=== PATIENT | female | born 1990 | race Caucasian/White ===

== ENCOUNTER 2017-12-25 04:27 | Emergency (ER) | payer OTHER ==
[2017-12-25] MEDS ORDERED: Loperamide 2 MG Cap PO STA (04:59)
--- NOTE | 2017-12-25 05:05 | EDM.PDOC ---
ED HPI GENERAL MEDICAL PROBLEM - General Chief Complaint: Gastrointestinal Problem Stated Complaint: STOMACH PAIN AND POOPING BLOOD Time Seen by Provider: 12/25/17 04:39 Source of Information: Reports: Patient, RN Notes Reviewed, Significant Other ( Boyfriend) History Limitations: Reports: No Limitations - History of Present Illness INITIAL COMMENTS - FREE TEXT/NARRATIVE: The patient states that she developed blood mixed with loose stools around 23: 00 last night, 12/24/2017. She states that she's had about 20 episodes so far. She has associated nausea, but no emesis. She has had abdominal cramps, similar to menstrual cramps, except that she is not on her menstrual period. She states that she feels weak when she walks, and feels cold. She has not had a fever. She has not taken any [id number]-[id number]-[id number] medicines or home remedies to try to treat her symptoms. The patient does not recall eating any spoiled food recently. No similarly ill close contacts. No recent antibiotics. No recent travel. No prior similar symptoms. The patient does not have a PCP. Abdomen Pain Score (Numeric/FACES): 6 - Related Data Allergies Allergy/AdvReac Type Severity Reaction Status Date / Time No Known Allergies Allergy Verified 12/25/17 04:39 Home Meds: Home Meds . 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 ED EXAM, GI/ABD - Physical Exam Exam: See Below Exam Limited By: No Limitations General Appearance: Alert, No Apparent Distress, Thin Eyes: Bilateral: Normal Appearance, EOMI Ears: Normal External Exam, Hearing Grossly Normal Nose: Normal Inspection Throat/Mouth: Normal Inspection, Normal Lips, Normal Voice, No Airway Compromise Head: Atraumatic, Normocephalic Neck: Normal Inspection, Full Range of Motion Respiratory/Chest: No Respiratory Distress, Lungs Clear, Normal Breath Sounds, No Accessory Muscle Use Cardiovascular: Normal Peripheral Pulses, Regular Rate, Rhythm, No Edema, No Gallop, No JVD, No Murmur, No Rub GI/Abdominal Exam: Normal Bowel Sounds, Soft, No Organomegaly, No Distention, No Abnormal Bruit, No Mass, Tender (Generalized) (Female) Exam: Deferred Rectal (Female) Exam: Deferred, Heme + Stool (brown stool mixed with blood) Back Exam: Normal Inspection, Full Range of Motion, NT Extremities: Normal Inspection, Normal Range of Motion, No Pedal Edema, Normal Capillary Refill Neurological: Alert, Oriented, Normal Cognition, No Motor/Sensory Deficits Psychiatric: Normal Affect Skin Exam: Warm, Dry, Intact, Normal Color, No Rash Course - Vital Signs Last Recorded V/S: Last Vital Signs Temp 36.6 C 12/25/17 04:35 Pulse 63 12/25/17 04:35 Resp 16 12/25/17 04:35 BP 121/79 12/25/17 04:35 Pulse Ox 97 12/25/17 04:35 Orthostatic Blood Pressure [ 112/77 Standing] Orthostatic Blood Pressure [ 112/73 Sitting] Orthostatic Blood Pressure [ 114/75 Supine] - Orders/Labs/Meds Orders: Active Orders 24 hr Category Date Time Status Orthostatic Vital Signs [RC] STAT Care 12/25/17 04:41 Active CULTURE STOOL + SHIGATOX [RM] Stat Lab 12/25/17 04:54 Received NOROVIRUS, RT-PCR Stat Lab 12/25/17 04:54 Received Labs: Laboratory Tests 12/25/17 12/25/17 Range/Units 05:25 05:25 WBC 8.99 (3.98-10.04) K/mm3 RBC 4.00 (3.98-5.22) M/mm3 Hgb 12.6 (11.2-15.7) gm/L Hct 37.7 (34.1-44.9) % MCV 94.3 (79.4-94.8) fl MCH 31.5 (25.6-32.2) pg MCHC 33.4 (32.2-35.5) g/dl RDW Std Deviation 42.2 (36.4-46.3) fL Plt Count 183 (182-369) K/mm3 MPV 9.9 (9.4-12.3) fl Neutrophils % (Manual) 74 H (40-60) % Band Neutrophils % 0 (0-10) % Lymphocytes % (Manual) 21 (20-40) % Atypical Lymphs % 0 % Monocytes % (Manual) 0 L (2-10) % Eosinophils % (Manual) 5 (0.7-5.8) % Basophils % (Manual) 0 L (0.1-1.2) Platelet Estimate Adequate RBC Morph Comment Normal Sodium 140 (136-145) mEq/L Potassium 3.7 (3.5-5.1) mEq/L Chloride 106 (98-107) mEq/L Carbon Dioxide 26 (21-32) mEq/L Anion Gap 11.7 (5-15) BUN 14 (7-18) mg/dL Creatinine 0.9 (0.55-1.02) mg/dL Est Cr Clr Drug Dosing 87.40 mL/min Estimated GFR (MDRD) > 60 (>60) mL/min BUN/Creatinine Ratio 15.6 (14-18) Glucose 93 (74-106) mg/dL Calcium 8.9 (8.5-10.1) mg/dL Magnesium 1.9 (1.8-2.4) mg/dl Total Bilirubin 0.3 (0.2-1.0) mg/dL AST 17 (15-37) U/L ALT 23 (14-59) U/L Alkaline Phosphatase 63 (46-116) U/L Total Protein 7.4 (6.4-8.2) g/dl Albumin 4.1 (3.4-5.0) g/dl Globulin 3.3 gm/dL Albumin/Globulin Ratio 1.2 (1-2) Meds: Medications Discontinued Medications Generic Name Dose Route Start Last Admin Trade Name Freq PRN Reason Stop Dose Admin Loperamide HCl 4 mg 12/25/17 04:59 12/25/17 05:14 Imodium PO 12/25/17 05:00 4 mg ONETIME STA Administration Ondansetron HCl 4 mg 12/25/17 05:08 12/25/17 05:14 Zofran Odt PO 12/25/17 05:09 4 mg ONETIME ONE Administration - Re-Assessments/Exams Free Text/Narrative Re-Assessment/Exam: 12/25/17 05:09 The patient is not orthostatic, therefore does not need to receive IV fluid. I have ordered 4 mg of oral Imodium and 4 mg Zofran ODT. I have ordered blood work and stool WBCs, rotavirus, culture, and Norovirus. 12/25/17 06:15 Test results discussed with the patient and her boyfriend. Today's workup is unremarkable. She has not suffered any significant fluid or electrolyte shifts as a result of her diarrhea. Her stool rotavirus is negative, and her stool was negative for WBCs. The stool culture and stool norovirus are still pending. It would appear that the source of the patient's GI bleed is in the distal colon. The patient may have an internal hemorrhoid, a telangiectasia, an AV malformation, or, conceivably, inflammatory bowel disease, however, it does not appear that the patient is suffering from bacterial diarrhea. I believe she would benefit from a colonoscopy to determine the source of the bleed, and I will therefore refer her to Dr. Major for further evaluation. In the meantime, I'm recommending that the patient take one tablet of [id number] Imodium after each loose bowel movement, to a maximum of 8 tablets within a 24-hour period. I am recommending that she stay adequately hydrated. Departure - Departure Time of Disposition: 06:18 Disposition: Home, Self-Care 01 Condition: Fair Clinical Impression: Lower GI bleed - Discharge Information *PRESCRIPTION DRUG MONITORING PROGRAM REVIEWED*: Not Applicable *COPY OF PRESCRIPTION DRUG MONITORING REPORT IN PATIENT JOSEPH: Not Applicable Referrals: Luis Major MD [Physician] - Forms: ED Department Discharge Additional Instructions: You were seen in the emergency room for several episodes of bloody diarrhea. Workup in the ER included blood work, stool studies, and positional blood pressure checks. Your workup was, for the most part, unremarkable. You have not suffered any significant fluid or electrolyte shifts as a result of your diarrhea. The exact cause of your GI bleed is not known, but it does not appear to be due to an infection. Take one tablet of [id number] Imodium (loperamide) after each loose bowel movement, to a total of 8 tablets within a 24-hour period. Don't forget - you already received 2 tablets in the ER. Stay adequately hydrated. We recommend that you undergo a colonoscopy to evaluate the source of your GI bleed. Please follow-up with the surgeon Dr. Luis Major for further evaluation. If any other problems, please do not hesitate to return to the ER. - My Orders Last 24 Hours: My Active Orders 12/25/17 04:41 Orthostatic Vital Signs [RC] STAT 12/25/17 04:54 CULTURE STOOL + SHIGATOX [RM] Stat NOROVIRUS, RT-PCR Stat - Assessment/Plan Last 24 Hours: My Active Orders 12/25/17 04:41 Orthostatic Vital Signs [RC] STAT 12/25/17 04:54 CULTURE STOOL + SHIGATOX [RM] Stat NOROVIRUS, RT-PCR Stat
[2017-12-25] MEDS ORDERED: Ondansetron 4 MG Tab.DIS PO ONE (05:08)
== END 2017-12-25 06:32 | disposition home or self-care (01) ==
LOC: JD.ED 04:27
DX: K92.2 Gastrointestinal hemorrhage, unspecified (principal)
CPT/HCPCS: 36415; 80053; 83735; 85007; 85027; 87046; 87425; 87798; 89055; 99284; A9270; 87427